=== PATIENT | female | born 1960 | race Caucasian/White ===

== ENCOUNTER 2016-11-02 13:28 | Outpatient (CLI) | payer OTHER ==
--- NOTE | 2016-11-02 15:36 | XRAY Report ---
THREE VIEW LUMBAR SPINE: 11/02/2016 CLINICAL INDICATION: Pain. FINDINGS: AP, lateral, and coned down views of the lumbar spine demonstrate mild degenerative disk d isease. There is no evidence of fracture. Degenerative dextroscoliosis is noted. IMPRESSION: MILD DEGENERATIVE DISK DISEASE. JOB #: [id number] EXT JOB #:[id number]
== END 2016-11-02 13:29 | disposition home or self-care (01) ==
LOC: DI.S 13:28
PROVIDERS: ATTEND Physician Assistant
DX: M51.36 Other intervertebral disc degeneration, lumbar region (principal)
CPT/HCPCS: 72100

== ENCOUNTER 2017-04-15 15:16 | Outpatient (CLI) | payer OTHER ==
--- NOTE | 2017-04-16 16:13 | DEXA Report ---
DEXA SCAN: 04/15/2017 CLINICAL INDICATION: Postmenopausal. TECHNIQUE: Dual energy x-ray absorptiometry (DXA) was performed on a [employer] system. Regions measured are the AP spine, femoral neck, and, if needed, forearm. COMPARISON: None. In accordance with the International Society for Clinical Densitometry (ISCD) guidelines, data from previous exams may be reanalyzed using current recommendations and techniques. This is done to allow a more accurate basis for comparison with the current study. FINDINGS Lumbar Spine Data As Follows: REGION BMD (g/cm/cm) T-SCORE Z-SCORE L1 0.952 -1.5 -0.3 L2 1.072 -1.1 0.1 L3 1.167 -0.3 0.9 L4 1.305 0.9 2.1 TOTAL 1.131 -0.4 0.8 NOTE: All evaluable vertebrae are used for classification. Hip Data As Follows: REGION BMD (g/cm/cm) T-SCORE Z-SCORE Neck 0.960 -0.6 0.7 TOTAL 0.894 -0.9 0.0 NOTE: The femoral neck or total proximal femur, whichever is lowest, is used for classification. IMPRESSION: THE WHO CLASSIFICATION BASED ON THE INTERNATIONAL REFERENCE STANDARD IS NORMAL. FRACTURE RISK: NOT INCREASED. RECOMMENDATION: Patients with diagnosis of osteoporosis or osteopenia should have regular bone mineral density assessment. For those eligible for Medicare, routine testing is allowed once every 2 years. Testing frequency can be increased for patients who have rapidly progressing disease or for those who are receiving medical therapy to restore bone mass. COMMENT: World Health Organization (WHO) definitions for osteoporosis and osteopenia: NORMAL BMD: T-score at -1.0 or higher, fracture risk is low. OSTEOPENIA BMD: T-score between -1.0 and -2.5, fracture risk is increased. OSTEOPOROSIS BMD: T-score at -2.5 or lower, fracture risk high. National Osteoporosis Foundation recommends: 1. Obtain adequate dietary calcium (at least 1200 mg per day) and vitamin D (400 -800 international units per day). 2. Participate, as appropriate, in regular weightbearing and muscle- strengthening exercise. 3. Avoid tobacco use and reduce alcohol and caffeine intake. 4. For more detailed information see the website at www.NOF.org. MTDD
== END 2017-04-15 15:17 | disposition home or self-care (01) ==
LOC: DI 15:16
PROVIDERS: ATTEND Physician Assistant
DX: Z13.820 Encounter for screening for osteoporosis (principal); Z78.0 Asymptomatic menopausal state
CPT/HCPCS: 77080

== ENCOUNTER 2017-04-15 15:18 | Outpatient (CLI) | payer OTHER ==
--- NOTE | 2017-04-16 18:28 | Mammography Report ---
DIGITAL SCREENING MAMMOGRAM: 04/15/2017 CLINICAL INDICATION: A 56-year-old nulliparous patient with history of benign biopsy for screening. COMPARISON: 01/2014, 07/2013, 12/2012, 04/2008. TECHNIQUE: Routine CC and MLO projections as well as bilateral laterally exaggerated craniocaudal vi ews were obtained of the breasts. The breasts again demonstrate extremely dense parenchyma bilaterally, limiting the sensitivity of yvette mography. Biopsy marker and calcifications in the right upper-outer quadrant are stable. No suspici ous masses, clustered microcalcifications, or regions of architectural distortion are identified. IMPRESSION: BENIGN FINDINGS. RECOMMENDATION: ROUTINE ANNUAL SCREENING UNLESS OTHERWISE CLINICALLY INDICATED. BIRADS CATEGORY: 2, BENIGN FINDINGS. STANDARD QUALIFYING STATEMENTS 1. This examination was reviewed with the aid of Computed-Aided Detection (CAD). 2. A negative or benign imaging report should not delay biopsy if clinically suspicious findings are present. Consider surgical consultation if warranted. More than 5% of cancers are not identified b y imaging. 3. Dense breasts may obscure an underlying neoplasm. JOB #: [id number] EXT JOB #:[id number]
== END 2017-04-15 15:19 | disposition home or self-care (01) ==
LOC: DI 15:18
PROVIDERS: ATTEND Physician Assistant
DX: Z12.31 Encounter for screening mammogram for malignant neoplasm of breast (principal)
CPT/HCPCS: 77067

== ENCOUNTER 2017-05-23 07:44 | Day surgery (SDC) | payer OTHER ==
[2017-05-23] MEDS ORDERED: LACTATED RINGERS 1,000 ML IV ONE (08:18)
[2017-05-23] MEDS ORDERED: fentaNYL 100 MCG/2 ML VIAL IVP ONE (09:20)
[2017-05-23] MEDS ORDERED: MIDAZOLAM 2 MG/2 ML VIAL IVP ONE (09:20)
[2017-05-23 10:26] VITALS: BP 122/71
== END 2017-05-23 07:45 | disposition home or self-care (01) ==
LOC: SDS 07:44
PROVIDERS: ATTEND Surgery
PROC: 0DJD8ZZ Inspection of Lower Intestinal Tract, Via Natural or Artificial Opening Endoscopic (ICD-10-PCS; principal; 2017-05-23 09:00)
DX: Z12.11 Encounter for screening for malignant neoplasm of colon (principal); K64.8 Other hemorrhoids; Z86.718 Personal history of other venous thrombosis and embolism
CPT/HCPCS: 45378; J7120

== ENCOUNTER 2018-01-17 13:35 | Outpatient (CLI) | payer OTHER ==
--- NOTE | 2018-01-17 15:42 | XRAY Report ---
Procedure Date: 01/17/2018 Accession Number: [id number] / [id number] Procedure: XRS - Foot 3 View RT CPT Code: FULL RESULT: EXAM: RIGHT FOOT RADIOGRAPHY EXAM DATE: 01/17/2018 01:43 PM. CLINICAL HISTORY: Pain, trauma from athletics. COMPARISON: None. TECHNIQUE: 3 views. FINDINGS: Bones: Mild inferior calcaneal spurring. No fractures or bone lesions. Joints: Normal. No subluxations. Soft Tissues: Normal. No soft tissue swelling. IMPRESSION: Normal foot radiography. RADIA
== END 2018-01-17 13:36 | disposition home or self-care (01) ==
LOC: DI.S 13:35
PROVIDERS: ATTEND Physician Assistant
DX: M79.671 Pain in right foot (principal); M79.89 Other specified soft tissue disorders

== ENCOUNTER 2019-02-04 14:34 | Outpatient (CLI) | payer OTHER ==
--- NOTE | 2019-02-05 16:24 | Ultrasound Report ---
Reason: RIGHT LOWER QUADRANT PAIN Procedure Date: 02/04/2019 Accession Number: [id number] / [id number] Procedure: US - Pelvic w/Transvaginal CPT Code: FULL RESULT: EXAM: PELVIC ULTRASOUND EXAM DATE: 02/04/2019 03:56 PM. CLINICAL HISTORY: Right lower quadrant pain, history of fibroids and endometriosis. COMPARISON: 12/23/2012. TECHNIQUE: Realtime transabdominal pelvic scan performed to identify the uterus and adnexa and as an overview of other pelvic structures, followed by transvaginal scan to provide greater detail of the uterus and adnexa, with static image documentation. FINDINGS: Uterus: 6.0 x 2.0 x 3.9 cm, volume 23 cc. Anteverted position. Normal overall size and echotexture. Masses: Suboptimally visualized uterine body intramural fibroid measures 0.8 x 0.6 x 0.7 cm. Previously measured 1.3 cm, decreased in size. Endometrium: 6 mm. Previously 3 mm. A cystic focus about the anterior fundal endometrium measures proximal and 3 x 5 mm. Other new small endometrial cysts also present. No solid or vascular mass identified. Cervix: Unremarkable. Right Ovary: 1.8 x 1.3 x 0.2 cm, volume 1.4 cc. Normal echotexture and blood flow. Left Ovary: 1.8 x 0.9 x 1.2 cm, volume 1.1 cc. Normal echotexture and blood flow. Free Fluid: None. Other: None. IMPRESSION: 1. Multiple endometrial cysts measuring up to 5 mm new since prior exam. No solid masses or thickening evident however. 2. Interval decrease in size of intramural fibroid from 1.3-0.8 cm. RADIA
== END 2019-02-04 14:35 | disposition home or self-care (01) ==
LOC: DI 14:34
PROVIDERS: ATTEND Physician Assistant
DX: N85.8 Other specified noninflammatory disorders of uterus (principal); D25.1 Intramural leiomyoma of uterus
CPT/HCPCS: 76830; 76856

== ENCOUNTER 2019-02-04 14:34 | Outpatient (CLI) | payer OTHER ==
--- NOTE | 2019-02-04 16:54 | Mammography Report ---
Reason: SCREENING MAMMO Procedure Date: 02/04/2019 Accession Number: [id number] / [id number] Procedure: QUE - Screening Mammo w/Dinesh CPT Code: FULL RESULT: EXAM: Screening Mammo w/Dinesh DATE: 02/04/2019 4:22 PM CLINICAL HISTORY: Routine screening; history of prior right breast biopsy TECHNIQUE: (B) - Bilateral CC and MLO views were obtained. COMPARISON: 04/15/2017, 01/27/2014, 07/16/2013, 07/15/2013, and 12/23/2012 PARENCHYMAL PATTERN: (VD) - The breasts demonstrate extremely dense parenchyma bilaterally, limiting the sensitivity of mammography. FINDINGS: No significant interval change. There are no suspicious masses, calcifications, or areas of distortion. Postbiopsy changes on the right are stable. IMPRESSION: Negative examination. BI-RADS category 1. RECOMMENDATION: (ANNUAL) - Recommend routine annual screening mammography. BI-RADS CATEGORY: (1) - Negative. STANDARD QUALIFYING STATEMENTS: 1. This examination was not reviewed with the aid of Computer-Aided Detection (CAD). 2. A negative or benign imaging report should not preclude biopsy if clinically suspicious findings are present. 3. Dense breasts may obscure an underlying neoplasm. 4. This examination was reviewed with the aid of 3D breast imaging (tomosynthesis).
== END 2019-02-04 14:35 | disposition home or self-care (01) ==
LOC: DI 14:34
PROVIDERS: ATTEND Physician Assistant
DX: Z12.31 Encounter for screening mammogram for malignant neoplasm of breast (principal)
CPT/HCPCS: 77063; 77067

== ENCOUNTER 2020-08-05 08:24 | Outpatient (CLI) | payer OTHER ==
--- NOTE | 2020-08-08 14:10 | Mammography Report ---
BILATERAL DIGITAL SCREENING MAMMOGRAM 3D/2D: 08/05/2020 CLINICAL: Routine screening. Comparison is made to exams dated: 02/04/2019 mammogram, 04/15/2017 mammogram, 01/27/2014 mammogram, an d 07/16/2013 mammogram - [facility]. The tissue of both breasts is heterogeneously dense. This may lower the sensitivity of mammography. There is a biopsy clip in the right breast. No significant masses, calcifications, or other findings are seen in either breast. There has been no significant interval change. IMPRESSION: NEGATIVE There is no mammographic evidence of malignancy. A 1 year screening mammogram is recommended. This exam was interpreted at Station ID: [id number]. NOTE: For mammograms, a report in lay terms will be sent to the patient. Approximately 15% of breast malignancies will not be visualized mammographically. In the management of a palpable breast mass, a negative mammogram must not discourage biopsy of a clinically suspicious lesion. Electronically Signed By: Evan hill/dante:08/05/2020 10:01:02 ACR BI-RADS Category 1: Negative 3341F PARENCHYMAL PATTERN: (D) - The breast(s) demonstrate(s) heterogeneously dense fibroglandular parchristiy ma. BI-RADS CATEGORY: (1) - 1 RECOMMENDATION: (ANNUAL) - Recommend routine annual screening mammography. [id number] 1 year screening LATERALITY: (B)
== END 2020-08-05 08:25 | disposition home or self-care (01) ==
LOC: DI 08:24
PROVIDERS: ATTEND Registered Nurse
DX: Z12.31 Encounter for screening mammogram for malignant neoplasm of breast (principal)

== ENCOUNTER 2022-06-11 08:56 | Outpatient (CLI) | payer BC ==
--- NOTE | 2022-06-12 10:30 | Mammography Report ---
BILATERAL DIGITAL SCREENING MAMMOGRAM 3D/2D WITH EXAGGERATED CC: 06/11/2022 CLINICAL: Routine screening. Family history of breast cancer. Comparison is made to exams dated: 08/05/2020 mammogram and 02/04/2019 mammogram - [facility]. Both breasts are heterogeneously dense, which may obscure small masses (category c / 51-75% glandular tissue). There is a biopsy clip in the right breast. No significant masses, calcifications, or other findings are seen in either breast. There has been no significant interval change. IMPRESSION: BENIGN There is no mammographic evidence of malignancy. A 1 year screening mammogram is recommended. Based on the Tyrer Cuzick model (a risk assessment model) the patients lifetime risk is 13.5% and he r 10 year risk is 5.3%. According to the ACR, ACS, and NCCN guidelines, an annual breast MRI exam makeda ng with mammogram is recommended if the patients lifetime risk is 20% or greater. This exam was interpreted at Station ID: [id number]. NOTE: For mammograms, a report in lay terms will be sent to the patient. Approximately 15% of breast malignancies will not be visualized mammographically. In the management of a palpable breast mass, a negative mammogram must not discourage biopsy of a clinically suspicious lesion. Electronically Signed By: Hi rawls/dante:06/11/2022 11:22:16 ACR BI-RADS Category 2: Benign Finding(s) 3342F PARENCHYMAL PATTERN: (D) - The breast(s) demonstrate(s) heterogeneously dense fibroglandular leon villafana. BI-RADS CATEGORY: (2) - 2 RECOMMENDATION: (ANNUAL) - Recommend routine annual screening mammography. [id number] 1 year screening LATERALITY: (B)
== END 2022-06-11 08:57 | disposition home or self-care (01) ==
LOC: DI.S 08:56
PROVIDERS: ATTEND Registered Nurse
DX: Z12.31 Encounter for screening mammogram for malignant neoplasm of breast (principal); Z80.3 Family history of malignant neoplasm of breast

== ENCOUNTER 2022-07-06 14:56 | Outpatient (CLI) | payer BC ==
--- NOTE | 2022-07-06 15:51 | XRAY Report ---
PROCEDURE: Chest 2 View X-Ray INDICATIONS: COUGH TECHNIQUE: 2 views of the chest were acquired. COMPARISON: None. FINDINGS: Surgical changes and devices: None. Lungs and pleura: No pleural effusions or pneumothorax. Lungs are clear. Mediastinum: Mediastinal contours are normal. Heart size is normal. Bones and chest wall: No suspicious bony abnormalities. Soft tissues appear unremarkable. IMPRESSION: Normal for age, source of cough is not identified. Note is made that the lung volumes are relatively large but this may simply represent body habitus and aggressive inspiratory effort. Reviewed by: Juan Carlos Foley MD on 07/06/2022 3:49 PM PST Approved by: Juan Carlos Foley MD on 07/06/2022 3:49 PM PST Station ID: [id number]
== END 2022-07-06 14:57 | disposition home or self-care (01) ==
LOC: DI.S 14:56
PROVIDERS: ATTEND Nurse Practitioner Family
DX: R05.9 Cough, unspecified (principal)

== ENCOUNTER 2023-07-22 13:16 | Outpatient (CLI) | payer OTHER ==
--- NOTE | 2023-07-23 09:34 | Mammography Report ---
BILATERAL DIGITAL SCREENING MAMMOGRAM 3D/2D WITH EXAGGERATED CC: 07/22/2023 CLINICAL: Routine screening. Family history of breast cancer. Comparison is made to exams dated: 06/11/2022 mammogram, 08/05/2020 mammogram, 02/04/2019 mammogram, and 06/15/2016 mammogram - [facility]. Both breasts are extremely dense, which lowers the sensitivity of mammography (category d />75% gland ular tissue). There are benign calcifications in the right breast. There also is a biopsy clip in the right breast . No significant masses, calcifications, or other findings are seen in either breast. There has been no significant interval change. IMPRESSION: BENIGN There is no mammographic evidence of malignancy. A 1 year screening mammogram is recommended. Based on Tyrer-Cuzick model (a risk assessment model), the patient's lifetime risk is 20.0% and her 1 0 year risk is 8.4%. If a patient has an elevated risk, a more comprehensive evaluation should be con sidered and/or a referral to a genetic counselor. The [place] [employer], [employer], and NCCN Guidelines advise the consideration of Breast MRI as an adjunct to screening mammog sofya in patients whose "Lifetime risk to develop breast cancer" is 20% or higher. This exam was interpreted at Station ID: [id number]. NOTE: For mammograms, a report in lay terms will be sent to the patient. Approximately 15% of breast malignancies will not be visualized mammographically. In the management of a palpable breast mass, a negative mammogram must not discourage biopsy of a clinically suspicious lesion. Electronically Signed By: Crissy nath/dante:07/22/2023 17:17:19 ACR BI-RADS Category 2: Benign Finding(s) 3342F PARENCHYMAL PATTERN: (VD) - The breast(s) demonstrate(s) extremely dense parenchyma, limiting the sen sitivity of mammography. BI-RADS CATEGORY: (2) - 2 Mammogram [id number] 1 year screening LATERALITY: (B)
== END 2023-07-22 13:17 | disposition home or self-care (01) ==
LOC: DI.S 13:16
PROVIDERS: ATTEND Registered Nurse
DX: Z12.31 Encounter for screening mammogram for malignant neoplasm of breast (principal); R92.30 Dense breasts, unspecified; Z80.3 Family history of malignant neoplasm of breast

== ENCOUNTER 2023-07-31 08:00 | Outpatient (CLI) | payer OTHER ==
--- NOTE | 2023-08-01 12:38 | XRAY Report ---
PROCEDURE: Lumbar Spine 2-3V INDICATIONS: LUMBAR RADICULOPATHY TECHNIQUE: 3 views of the lumbar spine were acquired. COMPARISON: None. FINDINGS: Bones: 5 [id number] vertebrae are present. There is normal bony alignment. No vertebral body compression fractures. No suspicious bony lesions. Moderate disc height loss at L2-3, L4-5 and L5-S1 . Mild disc height loss at remaining levels. Facet arthrosis L5-S1. Soft tissues: Overlying bowel gas pattern is normal. No suspicious soft tissue calcifications. IMPRESSION: Mild to moderate, multilevel degenerative disc disease and lumbosacral facet arthrosis. Reviewed by: José Miguel Curtis MD on 08/01/2023 12:37 PM PST Approved by: José Miguel Curtis MD on 08/01/2023 12:37 PM PST Station ID: [id number]
== END 2023-07-31 23:59 | disposition home or self-care (01) ==
LOC: DI.S 08:00
PROVIDERS: ATTEND Registered Nurse
DX: M47.816 Spondylosis without myelopathy or radiculopathy, lumbar region (principal); M47.817 Spondylosis without myelopathy or radiculopathy, lumbosacral region; M51.36 Other intervertebral disc degeneration, lumbar region; M51.37 Other intervertebral disc degeneration, lumbosacral region

== ENCOUNTER 2023-11-01 09:24 | Outpatient (CLI) | payer OTHER | END 2023-11-01 09:25 | disposition home or self-care (01) | LOC: DI 09:24 | PROVIDERS: ATTEND Registered Nurse | DX: I11.9 Hypertensive heart disease without heart failure (principal) | CPT/HCPCS: 93307 ==